=== PATIENT | male | born 1955 | race Caucasian/White ===

== ENCOUNTER 2021-06-24 14:08 | Inpatient (IN) ==
[2021-06-24] MEDS ORDERED: PANTOPRAZOLE 40 MG VIAL IV STA (14:19)
[2021-06-24 14:44] LABS: Basophils # 0.1 10*3/uL (0.0-0.2); Basophils % 0.6 % (0.0-0.8); Eosinophils # 0.2 10*3/uL (0.0-0.87); Eosinophils % 2.1 % (0.00-10.9); Hematocrit 32.3 VOL% (42.0-52.0); Hemoglobin 10.8 GM/DL (14.0-18.0); Immature Granulocytes % 0.5 %; Immature Granulocytes Absolute 0.04 #; Lymphocytes # 1.9 10*3/uL (1.4-4.0); Lymphocytes % 23.3 % (21.2-54.2); Mean Corpuscular HGB Conc 33.4 GM/DL (32-36); Mean Platelet Volume 9.2 FL (9.6-12.0); Monocytes % 6.8 % (1.7-12.7); Neutrophils % 66.7 % (38.7-73.9); Platelet Count 218 T/CUMM (130-400); Red Blood Count 3.55 MC/CUMM (3.8-5.5); Red Cell Distribution Width 13.2 % (9.3-17.3); White Blood Count 8.2 T/CUMM (4-12)
[2021-06-24 15:00] LABS: PT Patient Result 11.5 SECS (10.5-12.0); Partial Thromboplastin Time 26.1 SECS (23.9-33.8)
[2021-06-24 15:03] LABS: Albumin 3.8 G/DL (3.4-5.0); Bilirubin,Total 0.5 MG/DL (0.20-1.00); Calcium 8.5 MG/DL (8.5-10.1); Osmolality,Calculated 279.7 MOS/KG (273-304); Potassium 3.7 MMOL/L (3.5-5.1); Total Protein 7.2 G/DL (6.4-8.2)
[2021-06-24] MEDS: SODIUM CHLORIDE 0.9% 1,000 ML IV SCH (16:15)
[2021-06-24 19:59] LABS: Hematocrit 30.5 VOL% (42.0-52.0); Hemoglobin 10.1 GM/DL (14.0-18.0)
[2021-06-24] MEDS ORDERED: NICOTINE 7 MG/24 HR PATCH TRANSDERM PRN (21:03)
[2021-06-24] MEDS: DOCUSATE SODIUM 100 MG CAPSULE PO SCH (21:41)
[2021-06-24] MEDS: TEMAZEPAM 15 MG CAPSULE PO SCH (21:41)
[2021-06-24] MEDS: metroNIDAZOLE INJ 500 MG/100 ML PREMIX IV SCH (21:42)
[2021-06-24 23:28] LABS: Hematocrit 28.8 VOL% (42.0-52.0); Hemoglobin 9.6 GM/DL (14.0-18.0)
[2021-06-25] MEDS: SODIUM CHLORIDE 0.9% 1,000 ML IV SCH ×3 (01:16→20:59)
[2021-06-25] MEDS: metroNIDAZOLE INJ 500 MG/100 ML PREMIX IV SCH ×3 (04:49→20:33)
[2021-06-25] MEDS: traMADol 50 MG TABLET PO PRN ×3 (05:56→19:13)
[2021-06-25 05:58] LABS: Hematocrit 30.1 VOL% (42.0-52.0); Hemoglobin 9.9 GM/DL (14.0-18.0)
[2021-06-25 05:59] LABS: Basophils % 0.5 % (0.0-0.8); Eosinophils # 0.2 10*3/uL (0.0-0.87); Hematocrit 30.4 VOL% (42.0-52.0); Hemoglobin 10.1 GM/DL (14.0-18.0); Immature Granulocytes % 0.4 %; Immature Granulocytes Absolute 0.03 #; Lymphocytes # 2.3 10*3/uL (1.4-4.0); Lymphocytes % 30.5 % (21.2-54.2); Mean Corpuscular HGB Conc 33.2 GM/DL (32-36); Mean Corpuscular Volume 92.1 FL (87-102); Mean Platelet Volume 9.3 FL (9.6-12.0); Monocytes % 7.5 % (1.7-12.7); Neutrophils % 59.1 % (38.7-73.9); Platelet Count 188 T/CUMM (130-400); Red Cell Distribution Width 13.5 % (9.3-17.3); White Blood Count 7.6 T/CUMM (4-12)
[2021-06-25 06:27] LABS: Calcium 8.2 MG/DL (8.5-10.1); Osmolality,Calculated 278.5 MOS/KG (273-304); Potassium 4.3 MMOL/L (3.5-5.1)
[2021-06-25] MEDS: CITALOPRAM 40 MG TABLET PO SCH (08:19)
[2021-06-25] MEDS: DOCUSATE SODIUM 100 MG CAPSULE PO SCH ×2 (08:19→20:33)
[2021-06-25] MEDS: PANTOPRAZOLE 40 MG VIAL IV SCH (08:21)
[2021-06-25 09:32] LABS: Hematocrit 31.5 VOL% (42.0-52.0); Hemoglobin 10.4 GM/DL (14.0-18.0)
[2021-06-25] MEDS: ONDANSETRON 4 MG/2 ML VIAL IV PRN (19:12)
[2021-06-25] MEDS: TEMAZEPAM 15 MG CAPSULE PO SCH (20:33)
[2021-06-26] MEDS: metroNIDAZOLE INJ 500 MG/100 ML PREMIX IV SCH ×3 (05:36→20:59)
[2021-06-26] MEDS: traMADol 50 MG TABLET PO PRN ×2 (06:02→20:59)
[2021-06-26] MEDS: SODIUM CHLORIDE 0.9% 1,000 ML IV SCH ×3 (06:03→23:09)
[2021-06-26 06:17] LABS: Basophils % 0.5 % (0.0-0.8); Eosinophils # 0.1 10*3/uL (0.0-0.87); Eosinophils % 1.7 % (0.00-10.9); Hematocrit 28.5 VOL% (42.0-52.0); Hemoglobin 9.3 GM/DL (14.0-18.0); Immature Granulocytes % 0.5 %; Immature Granulocytes Absolute 0.04 #; Lymphocytes # 1.9 10*3/uL (1.4-4.0); Lymphocytes % 24.7 % (21.2-54.2); Mean Corpuscular HGB Conc 32.6 GM/DL (32-36); Mean Corpuscular Volume 93.4 FL (87-102); Mean Platelet Volume 9.8 FL (9.6-12.0); Monocytes % 7.9 % (1.7-12.7); Neutrophils % 64.7 % (38.7-73.9); Platelet Count 177 T/CUMM (130-400); Red Blood Count 3.05 MC/CUMM (3.8-5.5); Red Cell Distribution Width 13.6 % (9.3-17.3); White Blood Count 7.9 T/CUMM (4-12)
[2021-06-26 06:53] LABS: Calcium 7.8 MG/DL (8.5-10.1); Osmolality,Calculated 277.5 MOS/KG (273-304)
[2021-06-26] MEDS: DOCUSATE SODIUM 100 MG CAPSULE PO SCH ×2 (08:07→20:59)
[2021-06-26] MEDS: CITALOPRAM 40 MG TABLET PO SCH (08:07)
[2021-06-26] MEDS: PANTOPRAZOLE 40 MG VIAL IV SCH (08:07)
[2021-06-26 14:37] LABS: Hematocrit 27.1 VOL% (42.0-52.0); Hemoglobin 8.9 GM/DL (14.0-18.0)
[2021-06-26 18:43] LABS: Hematocrit 27.3 VOL% (42.0-52.0)
[2021-06-26] MEDS: TEMAZEPAM 15 MG CAPSULE PO SCH (20:59)
[2021-06-27 01:34] LABS: Hematocrit 26.5 VOL% (42.0-52.0); Hemoglobin 8.8 GM/DL (14.0-18.0)
[2021-06-27] MEDS: metroNIDAZOLE INJ 500 MG/100 ML PREMIX IV SCH ×3 (05:29→20:34)
[2021-06-27] MEDS: SODIUM CHLORIDE 0.9% 1,000 ML IV SCH ×3 (06:45→23:27)
[2021-06-27 07:29] LABS: Basophils % 0.4 % (0.0-0.8); Eosinophils # 0.1 10*3/uL (0.0-0.87); Eosinophils % 1.5 % (0.00-10.9); Hematocrit 26.2 VOL% (42.0-52.0); Hemoglobin 8.6 GM/DL (14.0-18.0); Immature Granulocytes % 0.4 %; Immature Granulocytes Absolute 0.03 #; Lymphocytes # 1.3 10*3/uL (1.4-4.0); Lymphocytes % 19.6 % (21.2-54.2); Mean Corpuscular HGB Conc 32.8 GM/DL (32-36); Mean Corpuscular Volume 91.9 FL (87-102); Mean Platelet Volume 9.1 FL (9.6-12.0); Monocytes % 6.7 % (1.7-12.7); Neutrophils % 71.4 % (38.7-73.9); Platelet Count 116 T/CUMM (130-400); Red Blood Count 2.85 MC/CUMM (3.8-5.5); Red Cell Distribution Width 13.4 % (9.3-17.3); White Blood Count 6.7 T/CUMM (4-12)
[2021-06-27] MEDS: PANTOPRAZOLE 40 MG VIAL IV SCH (10:02)
[2021-06-27] MEDS ORDERED: LIDOCAINE 2% 5 ML VIAL ONE (12:03)
[2021-06-27] MEDS ORDERED: propofoL 200 MG/20 ML VIAL IV ONE (12:03)
[2021-06-27] MEDS ORDERED: BISACODYL 5 MG TABLET PO ONE (12:30)
[2021-06-27] MEDS: CITALOPRAM 40 MG TABLET PO SCH (14:15)
[2021-06-27] MEDS: DOCUSATE SODIUM 100 MG CAPSULE PO SCH ×2 (14:15→20:35)
[2021-06-27] MEDS: ONDANSETRON 4 MG/2 ML VIAL IV PRN (15:25)
[2021-06-27] MEDS ORDERED: POLYETHYLENE GLYCOL POWDER 255 GM BOTTLE PO ONE (18:00)
[2021-06-27] MEDS: TEMAZEPAM 15 MG CAPSULE PO SCH (20:34)
[2021-06-28] MEDS: SODIUM CHLORIDE 0.9% 1,000 ML IV SCH ×3 (01:52→16:18)
[2021-06-28] MEDS: metroNIDAZOLE INJ 500 MG/100 ML PREMIX IV SCH ×3 (05:11→21:17)
[2021-06-28] MEDS: traMADol 50 MG TABLET PO PRN (05:21)
[2021-06-28 07:51] LABS: Hematocrit 26.3 VOL% (42.0-52.0); Hemoglobin 8.7 GM/DL (14.0-18.0)
[2021-06-28 08:35] LABS: Calcium 7.8 MG/DL (8.5-10.1); Osmolality,Calculated 279.3 MOS/KG (273-304); Potassium 3.7 MMOL/L (3.5-5.1)
[2021-06-28] MEDS: PANTOPRAZOLE 40 MG VIAL IV SCH (08:56)
[2021-06-28] MEDS: DOCUSATE SODIUM 100 MG CAPSULE PO SCH ×2 (09:00→21:17)
[2021-06-28] MEDS ORDERED: propofoL 200 MG/20 ML VIAL IV ONE (11:57)
[2021-06-28] MEDS ORDERED: LIDOCAINE 2% 5 ML VIAL ONE (11:57)
[2021-06-28] MEDS ORDERED: MAGNESIUM CITRATE 300 ML BOTTLE PO ONE ×2 (12:45→18:00)
[2021-06-28] MEDS: CITALOPRAM 40 MG TABLET PO SCH (16:27)
[2021-06-28] MEDS: TEMAZEPAM 15 MG CAPSULE PO SCH (21:17)
[2021-06-28] MEDS: ONDANSETRON 4 MG/2 ML VIAL IV PRN (21:34)
[2021-06-29] MEDS: SODIUM CHLORIDE 0.9% 1,000 ML IV SCH ×3 (01:22→21:46)
[2021-06-29] MEDS: metroNIDAZOLE INJ 500 MG/100 ML PREMIX IV SCH ×3 (05:08→21:45)
[2021-06-29] MEDS: CITALOPRAM 40 MG TABLET PO SCH (09:28)
[2021-06-29] MEDS: PANTOPRAZOLE 40 MG VIAL IV SCH (09:28)
[2021-06-29] MEDS: DOCUSATE SODIUM 100 MG CAPSULE PO SCH ×2 (09:28→21:45)
[2021-06-29 11:59] LABS: Hematocrit 24.8 VOL% (42.0-52.0); Hemoglobin 8.4 GM/DL (14.0-18.0)
[2021-06-29] MEDS ORDERED: SODIUM CHLORIDE 0.9% 1,000 ML IV PRN (17:21)
[2021-06-29] MEDS: TEMAZEPAM 15 MG CAPSULE PO SCH (21:43)
[2021-06-30] MEDS: metroNIDAZOLE INJ 500 MG/100 ML PREMIX IV SCH ×3 (06:06→20:58)
[2021-06-30] MEDS: traMADol 50 MG TABLET PO PRN (06:07)
[2021-06-30] MEDS: SODIUM CHLORIDE 0.9% 1,000 ML IV SCH ×3 (06:07→20:59)
[2021-06-30] MEDS: CITALOPRAM 40 MG TABLET PO SCH (08:48)
[2021-06-30] MEDS: DOCUSATE SODIUM 100 MG CAPSULE PO SCH ×2 (08:48→20:59)
[2021-06-30] MEDS: PANTOPRAZOLE 40 MG VIAL IV SCH (08:48)
[2021-06-30 10:11] LABS: Hematocrit 29.4 VOL% (42.0-52.0)
[2021-06-30] MEDS: TEMAZEPAM 15 MG CAPSULE PO SCH (20:57)
[2021-07-01] MEDS: SODIUM CHLORIDE 0.9% 1,000 ML IV SCH ×3 (00:19→21:06)
[2021-07-01] MEDS: metroNIDAZOLE INJ 500 MG/100 ML PREMIX IV SCH ×3 (04:12→21:06)
[2021-07-01] MEDS: PANTOPRAZOLE 40 MG VIAL IV SCH (08:34)
[2021-07-01] MEDS: CITALOPRAM 40 MG TABLET PO SCH (08:34)
[2021-07-01] MEDS: DOCUSATE SODIUM 100 MG CAPSULE PO SCH ×2 (08:35→21:07)
[2021-07-01] MEDS: traMADol 50 MG TABLET PO PRN ×2 (08:40→21:07)
[2021-07-01 12:26] LABS: Hematocrit 27.6 VOL% (42.0-52.0); Hemoglobin 9.2 GM/DL (14.0-18.0)
[2021-07-01] MEDS ORDERED: fentaNYL 100 MCG/2 ML VIAL IV ONE (13:17)
[2021-07-01] MEDS ORDERED: MIDAZOLAM 2 MG/2 ML VIAL IV ONE (13:17)
[2021-07-01] MEDS ORDERED: SODIUM CHLORIDE 0.45% 1,000 ML IV SCH (13:30)
[2021-07-01] MEDS ORDERED: HEPARIN/NACL 0.9% 2 UNITS/ML 4,000 UNIT/2,000 ML BAG IV ONE (13:53)
[2021-07-01] MEDS ORDERED: HEPARIN/NACL 0.9% 2 UNITS/ML 2,000 UNIT/1,000 ML BAG IV ONE (15:04)
[2021-07-01] MEDS: TEMAZEPAM 15 MG CAPSULE PO SCH (21:06)
[2021-07-02 04:58] LABS: Hematocrit 26.3 VOL% (42.0-52.0); Hemoglobin 8.8 GM/DL (14.0-18.0)
[2021-07-02] MEDS: metroNIDAZOLE INJ 500 MG/100 ML PREMIX IV SCH (05:08)
[2021-07-02] MEDS: SODIUM CHLORIDE 0.9% 1,000 ML IV SCH ×4 (06:58→15:02)
[2021-07-02] MEDS: DOCUSATE SODIUM 100 MG CAPSULE PO SCH ×2 (08:53→20:53)
[2021-07-02] MEDS: traMADol 50 MG TABLET PO PRN (08:53)
[2021-07-02] MEDS: CITALOPRAM 40 MG TABLET PO SCH (08:53)
[2021-07-02] MEDS: PANTOPRAZOLE 40 MG VIAL IV SCH (08:54)
[2021-07-02] MEDS ORDERED: traMADol 50 MG TABLET PO PRN (20:39)
[2021-07-02] MEDS: TEMAZEPAM 15 MG CAPSULE PO SCH (20:53)
[2021-07-03] MEDS: SODIUM CHLORIDE 0.9% 1,000 ML IV SCH (05:51)
[2021-07-03 07:14] LABS: Hematocrit 25.9 VOL% (42.0-52.0); Hemoglobin 8.6 GM/DL (14.0-18.0)
[2021-07-03] MEDS: DOCUSATE SODIUM 100 MG CAPSULE PO SCH ×2 (09:03→20:34)
[2021-07-03] MEDS: PANTOPRAZOLE 40 MG VIAL IV SCH (09:03)
[2021-07-03] MEDS: CITALOPRAM 40 MG TABLET PO SCH (09:03)
[2021-07-03] MEDS ORDERED: SODIUM CHLORIDE 0.9% 1,000 ML IV PRN (09:23)
[2021-07-03] MEDS ORDERED: FUROSEMIDE 40 MG/4 ML VIAL IV ONE (09:25)
[2021-07-03] MEDS ORDERED: ERTAPENEM 1,000 MG in SODIUM CHLORIDE 0.9% 100 ML IV ONE (11:58)
[2021-07-03 19:44] LABS: Hematocrit 31.2 VOL% (42.0-52.0); Hemoglobin 10.5 GM/DL (14.0-18.0)
[2021-07-03] MEDS: TEMAZEPAM 15 MG CAPSULE PO SCH (20:34)
[2021-07-04] MEDS ORDERED: ALVIMOPAN 12 MG CAPSULE PO ONE (05:00)
[2021-07-04] MEDS ORDERED: IBUPROFEN 600 MG TABLET PO ONE (05:00)
[2021-07-04] MEDS: SODIUM CHLORIDE 0.9% 1,000 ML IV SCH (05:54)
[2021-07-04] MEDS ORDERED: ERTAPENEM 1,000 MG in SODIUM CHLORIDE 0.9% 100 ML IV ONE (06:00)
[2021-07-04] MEDS ORDERED: DEXAMETHASONE 4 MG/1 ML VIAL ONE ×2 (06:40→06:50)
[2021-07-04] MEDS ORDERED: ROCURONIUM 50 MG/5 ML VIAL IV ONE (06:40)
[2021-07-04] MEDS ORDERED: propofoL 200 MG/20 ML VIAL IV ONE (06:40)
[2021-07-04] MEDS ORDERED: SEVOFLURANE 1 UNIT/15 MINUTE INH ONE ×8 (06:41→09:32)
[2021-07-04] MEDS ORDERED: LIDOCAINE 2% 5 ML VIAL ONE (06:41)
[2021-07-04] MEDS ORDERED: ETOMIDATE 40 MG/20 ML VIAL IV ONE (06:41)
[2021-07-04] MEDS ORDERED: fentaNYL 100 MCG/2 ML VIAL ONE (06:41)
[2021-07-04] MEDS ORDERED: ONDANSETRON 4 MG/2 ML VIAL ONE (06:41)
[2021-07-04] MEDS ORDERED: BUPIVACAINE MPF 0.25% 30 ML VIAL ONE (06:49)
[2021-07-04] MEDS ORDERED: LIDOCAINE 1% 5 ML VIAL ONE (06:50)
[2021-07-04] MEDS ORDERED: LACTATED RINGERS 1,000 ML IV SCH (07:00)
[2021-07-04] MEDS ORDERED: DEXMEDETOMIDINE 200 MCG/2 ML VIAL ONE (08:14)
[2021-07-04] MEDS ORDERED: TISSUE ADHESIVE 1 EACH APPLICATOR TOP ONE (08:31)
[2021-07-04] MEDS ORDERED: INDOCYANINE GREEN 25 MG VIAL IV ONE (08:32)
[2021-07-04] MEDS ORDERED: ACETAMINOPHEN INJ 1,000 MG/100 ML VIAL IV ONE (08:39)
[2021-07-04] MEDS ORDERED: PHENYLEPHRINE 1 MG/10 ML SYRINGE IV ONE ×2 (09:06→09:20)
[2021-07-04] MEDS ORDERED: KETOROLAC 30 MG/1 ML VIAL ONE (09:19)
[2021-07-04] MEDS ORDERED: GLYCOPYRROLATE 0.4 MG/2 ML VIAL ONE ×3 (09:20→09:24)
[2021-07-04] MEDS ORDERED: NEOSTIGMINE 10 MG/10 ML VIAL ONE (09:20)
[2021-07-04] MEDS ORDERED: HYDROmorphone 2 MG/1 ML VIAL IV PRN (10:23)
[2021-07-04] MEDS ORDERED: ONDANSETRON 4 MG/2 ML VIAL IV PRN (10:23)
[2021-07-04] MEDS: CITALOPRAM 40 MG TABLET PO SCH (11:14)
[2021-07-04] MEDS: DOCUSATE SODIUM 100 MG CAPSULE PO SCH ×2 (11:14→21:00)
[2021-07-04] MEDS: PANTOPRAZOLE 40 MG VIAL IV SCH (11:47)
[2021-07-04] MEDS: KETOROLAC 30 MG/1 ML VIAL IV SCH ×2 (11:48→18:00)
[2021-07-04 11:54] LABS: Basophils % 0.2 % (0.0-0.8); Eosinophils % 0.6 % (0.00-10.9); Hematocrit 30.6 VOL% (42.0-52.0); Hemoglobin 10.2 GM/DL (14.0-18.0); Immature Granulocytes % 0.6 %; Immature Granulocytes Absolute 0.04 #; Lymphocytes # 0.5 10*3/uL (1.4-4.0); Lymphocytes % 7.3 % (21.2-54.2); Mean Corpuscular HGB Conc 33.3 GM/DL (32-36); Mean Corpuscular Volume 89.7 FL (87-102); Mean Platelet Volume 10.5 FL (9.6-12.0); Monocytes % 2.9 % (1.7-12.7); Neutrophils % 88.4 % (38.7-73.9); Platelet Count 65 T/CUMM (130-400); Red Blood Count 3.41 MC/CUMM (3.8-5.5); Red Cell Distribution Width 15.3 % (9.3-17.3); White Blood Count 6.6 T/CUMM (4-12)
[2021-07-04 12:10] LABS: Anisocytosis 1+; Platelet Estimate Decreased; Poikilocytosis Slight
[2021-07-04 12:22] LABS: Calcium 7.7 MG/DL (8.5-10.1); Osmolality,Calculated 283.4 MOS/KG (273-304); Potassium 3.5 MMOL/L (3.5-5.1)
[2021-07-04] MEDS ORDERED: LACTATED RINGERS 1,000 ML IV ONE (12:44)
[2021-07-04] MEDS: amLODIPine 5 MG TABLET PO SCH ×2 (14:16→21:00)
[2021-07-04] MEDS: HYDROmorphone 2 MG/1 ML VIAL IV PRN ×2 (14:23→19:53)
[2021-07-04] MEDS ORDERED: ALVIMOPAN 12 MG CAPSULE PO SCH (21:00)
[2021-07-04] MEDS: TEMAZEPAM 15 MG CAPSULE PO SCH (21:00)
[2021-07-04] MEDS: LACTATED RINGERS 1,000 ML IV SCH (22:37)
[2021-07-05] MEDS: SODIUM CHLORIDE 0.9% 1,000 ML IV SCH
[2021-07-05] MEDS: HYDROmorphone 2 MG/1 ML VIAL IV PRN (04:18)
[2021-07-05 05:31] LABS: Basophils % 0.1 % (0.0-0.8); Eosinophils % 0.1 % (0.00-10.9); Hematocrit 24.7 VOL% (42.0-52.0); Immature Granulocytes % 0.5 %; Immature Granulocytes Absolute 0.05 #; Lymphocytes # 1.2 10*3/uL (1.4-4.0); Lymphocytes % 12.4 % (21.2-54.2); Mean Corpuscular HGB Conc 33.2 GM/DL (32-36); Mean Corpuscular Volume 92.9 FL (87-102); Mean Platelet Volume 11.3 FL (9.6-12.0); Monocytes % 8.6 % (1.7-12.7); Neutrophils % 78.3 % (38.7-73.9); Platelet Count 77 T/CUMM (130-400); Red Cell Distribution Width 15.6 % (9.3-17.3)
[2021-07-05 05:32] LABS: Hemoglobin 8.2 GM/DL (14.0-18.0); Red Blood Count 2.66 MC/CUMM (3.8-5.5); White Blood Count 9.8 T/CUMM (4-12)
[2021-07-05] MEDS: KETOROLAC 30 MG/1 ML VIAL IV SCH ×4 (05:44→19:06)
[2021-07-05 05:56] LABS: Calcium 7.5 MG/DL (8.5-10.1); Osmolality,Calculated 283.5 MOS/KG (273-304); Potassium 3.4 MMOL/L (3.5-5.1)
[2021-07-05] MEDS: amLODIPine 5 MG TABLET PO SCH ×2 (09:39→20:38)
[2021-07-05] MEDS: CITALOPRAM 40 MG TABLET PO SCH (09:39)
[2021-07-05] MEDS: PANTOPRAZOLE 40 MG VIAL IV SCH (09:40)
[2021-07-05] MEDS: DOCUSATE SODIUM 100 MG CAPSULE PO SCH ×2 (11:10→20:39)
[2021-07-05 12:29] LABS: Hematocrit 23.4 VOL% (42.0-52.0); Hemoglobin 7.6 GM/DL (14.0-18.0)
[2021-07-05] MEDS ORDERED: SODIUM CHLORIDE 0.9% 1,000 ML IV PRN (13:04)
[2021-07-05] MEDS: TEMAZEPAM 15 MG CAPSULE PO SCH (20:38)
[2021-07-06] MEDS: KETOROLAC 30 MG/1 ML VIAL IV SCH ×2 (00:14→06:14)
[2021-07-06 01:43] LABS: Hematocrit 28.6 VOL% (42.0-52.0)
[2021-07-06 01:48] LABS: Hemoglobin 9.4 GM/DL (14.0-18.0)
[2021-07-06 05:07] LABS: Basophils % 0.2 % (0.0-0.8); Eosinophils # 0.1 10*3/uL (0.0-0.87); Eosinophils % 1.6 % (0.00-10.9); Hematocrit 30.2 VOL% (42.0-52.0); Immature Granulocytes % 0.7 %; Immature Granulocytes Absolute 0.06 #; Lymphocytes # 1.2 10*3/uL (1.4-4.0); Lymphocytes % 15.2 % (21.2-54.2); Mean Corpuscular HGB Conc 33.1 GM/DL (32-36); Mean Corpuscular Volume 92.6 FL (87-102); Mean Platelet Volume 10.7 FL (9.6-12.0); Monocytes % 7.5 % (1.7-12.7); Neutrophils % 74.8 % (38.7-73.9); Red Blood Count 3.26 MC/CUMM (3.8-5.5); Red Cell Distribution Width 15.5 % (9.3-17.3)
[2021-07-06 05:09] LABS: Platelet Count 76 T/CUMM (130-400)
[2021-07-06 07:35] VITALS: BP 158/67
[2021-07-06] MEDS ORDERED: RIVAROXABAN 20 MG TABLET PO SCH (08:00)
[2021-07-06] MEDS: CITALOPRAM 40 MG TABLET PO SCH (08:33)
[2021-07-06] MEDS: amLODIPine 5 MG TABLET PO SCH (08:33)
[2021-07-06] MEDS ORDERED: CLOTRIMAZOLE/BETAMETHASONE CREAM 15 GM TUBE TOP SCH (09:00)
[2021-07-07] MEDS ORDERED: RIVAROXABAN 20 MG TABLET PO SCH (08:00)
== END 2021-07-06 10:30 | disposition home or self-care (01) | DRG 329 ==
LOC: N.ED 14:08 → N.EDINP 15:41 → N.3E 17:55
PROVIDERS: ADMIT Family Medicine; ATTEND Family Medicine
PROC: IRAGMES (2021-07-01 14:25)

== ENCOUNTER 2022-06-29 09:05 | Observation (INO) ==
[2022-06-29] MEDS ORDERED: ONDANSETRON 4 MG/2 ML VIAL IV PRN (09:22)
[2022-06-29] MEDS: SODIUM CHLORIDE 0.45% 1,000 ML IV SCH ×2 (10:15→17:24)
[2022-06-29] MEDS: PIPERACILLIN/TAZOBACTAM 3,375 MG in SODIUM CHLORIDE 0.9% 100 ML IV SCH ×2 (10:29→17:24)
[2022-06-29 11:36] LABS: Basophils # 0.1 10*3/uL (0.0-0.2); Basophils % 0.6 % (0.0-0.8); Eosinophils # 0.8 10*3/uL (0.0-0.87); Eosinophils % 7.2 % (0.00-10.9); Hemoglobin 13.9 GM/DL (14.0-18.0); Immature Granulocytes % 0.4 %; Immature Granulocytes Absolute 0.04 #; Lymphocytes # 1.7 10*3/uL (1.4-4.0); Lymphocytes % 16.2 % (21.2-54.2); Mean Corpuscular HGB Conc 33.9 GM/DL (32-36); Mean Corpuscular Volume 89.7 FL (87-102); Mean Platelet Volume 9.1 FL (9.6-12.0); Monocytes # 0.6 10*3/uL (0.11-0.8); Neutrophils % 69.6 % (38.7-73.9); Platelet Count 238 T/CUMM (130-400); Red Blood Count 4.57 MC/CUMM (3.8-5.5); Red Cell Distribution Width 12.9 % (9.3-17.3); White Blood Count 10.4 T/CUMM (4-12)
[2022-06-29 11:52] LABS: Albumin 3.9 G/DL (3.4-5.0); Bilirubin,Total 0.6 MG/DL (0.20-1.00); Calcium 9.7 MG/DL (8.5-10.1); Potassium 4.1 MMOL/L (3.5-5.1)
[2022-06-29 12:36] LABS: Hyaline Casts,Urine 6 /LPF (0-3); Mucus,Urine Occasional /LPF (Occasional); RBC,Urine <1 /HPF (0-4); Squamous Epithelial Cell,Urine Occasional /HPF (0-10); Urine Appearance Clear (Clear); Urine Color Yellow (Yellow); Urine pH 5.5 (4.5-8.0)
[2022-06-29 12:37] LABS: Bilirubin,Urine Negative (Negative); Blood, Urine Negative (Negative); Glucose,Urine (UA) Negative (Negative); Ketones,Urine Negative (Negative); Nitrite,Urine Negative (Negative); Protein,Urine Negative (Negative); Urine Urobilinogen 0.2 eU/dL (<2.0)
[2022-06-29] MEDS: HYDROmorphone 1 MG/1 ML SYRINGE IV PRN ×2 (13:34→18:21)
[2022-06-29] MEDS: OXcarbazepine 300 MG TABLET PO SCH (20:48)
[2022-06-30] MEDS: SODIUM CHLORIDE 0.45% 1,000 ML IV SCH ×4 (01:04→20:28)
[2022-06-30] MEDS: PIPERACILLIN/TAZOBACTAM 3,375 MG in SODIUM CHLORIDE 0.9% 100 ML IV SCH ×3 (01:04→16:59)
[2022-06-30] MEDS: HYDROmorphone 1 MG/1 ML SYRINGE IV PRN ×2 (08:14→20:13)
[2022-06-30] MEDS ORDERED: RIVAROXABAN 20 MG TABLET PO SCH (09:00)
[2022-06-30] MEDS: OXcarbazepine 300 MG TABLET PO SCH ×2 (09:32→20:13)
[2022-06-30] MEDS: ATORVASTATIN 20 MG TABLET PO SCH (09:32)
[2022-06-30] MEDS: PANTOPRAZOLE 40 MG TABLET PO SCH (09:32)
[2022-07-01] MEDS: PIPERACILLIN/TAZOBACTAM 3,375 MG in SODIUM CHLORIDE 0.9% 100 ML IV SCH ×3 (01:30→17:28)
[2022-07-01] MEDS: PANTOPRAZOLE 40 MG TABLET PO SCH (08:36)
[2022-07-01] MEDS: OXcarbazepine 300 MG TABLET PO SCH ×2 (08:36→20:35)
[2022-07-01] MEDS: ATORVASTATIN 20 MG TABLET PO SCH (08:36)
[2022-07-01] MEDS: HYDROmorphone 1 MG/1 ML SYRINGE IV PRN (08:40)
[2022-07-01] MEDS: SODIUM CHLORIDE 0.45% 1,000 ML IV SCH ×2 (09:49→14:58)
[2022-07-01] MEDS: RIVAROXABAN 20 MG TABLET PO SCH (17:26)
[2022-07-01] MEDS: TAMSULOSIN 0.4 MG CAPSULE PO SCH (20:36)
[2022-07-02] MEDS: PIPERACILLIN/TAZOBACTAM 3,375 MG in SODIUM CHLORIDE 0.9% 100 ML IV SCH ×3 (01:19→19:48)
[2022-07-02] MEDS: SODIUM CHLORIDE 0.45% 1,000 ML IV SCH ×4 (05:53→19:15)
[2022-07-02] MEDS: OXcarbazepine 300 MG TABLET PO SCH ×2 (09:13→21:11)
[2022-07-02] MEDS: ATORVASTATIN 20 MG TABLET PO SCH (09:13)
[2022-07-02] MEDS: PANTOPRAZOLE 40 MG TABLET PO SCH (09:13)
[2022-07-02] MEDS: RIVAROXABAN 20 MG TABLET PO SCH (19:49)
[2022-07-02] MEDS: TAMSULOSIN 0.4 MG CAPSULE PO SCH (21:11)
[2022-07-03] MEDS: PIPERACILLIN/TAZOBACTAM 3,375 MG in SODIUM CHLORIDE 0.9% 100 ML IV SCH ×2 (02:40→13:02)
[2022-07-03] MEDS: PANTOPRAZOLE 40 MG TABLET PO SCH (09:17)
[2022-07-03] MEDS: OXcarbazepine 300 MG TABLET PO SCH (09:17)
[2022-07-03] MEDS: ATORVASTATIN 20 MG TABLET PO SCH (09:17)
[2022-07-03] MEDS: SODIUM CHLORIDE 0.45% 1,000 ML IV SCH ×2 (09:20→13:03)
[2022-07-03 13:07] VITALS: BP 176/68
== END 2022-07-03 14:00 | disposition home or self-care (01) ==
LOC: N.2W → N.5E 06-30 15:32
PROVIDERS: ADMIT Family Medicine; ATTEND Family Medicine